=== PATIENT | female | born 1930 | race Caucasian/White ===

== ENCOUNTER 2016-11-02 20:06 | Inpatient (IN) | payer MEDICARE ==
[~2016-11-02] VITALS: Ht 160 cm; Wt 54.4 kg
[2016-11-02] MEDS ORDERED: Morphine Sulfate 2mg/ml Inj IVP ONE ×2 (20:30→22:15)
[2016-11-02 21:00] VITALS: BP 175/91
--- NOTE | 2016-11-02 21:12 | Emergency Room Report ---
History of Present Illness General Chief Complaint: Multiple Trauma/Fall Source: Patient (FNIA MARTINEZ) Present Illness HPI The patient is an 86-year-old female presenting with right hip pain after slipping and falling in the shower today. The patient states that she was shampooing her hair while standing, slipped, and fell onto the right hip. The patient was unable to get up at that point and states that she was sitting down for 12 hours before being found. The patient states that she has had multiple fractures of the pelvis in the past with the last one being 5 years prior. The patient states that she is experiencing a 1/10 sharp sensation to the right hip. The patient denies hitting her head and denies loss of consciousness. The patient denies numbness or tingling of the extremity and denies other symptoms including N, V, F, KEE, dizziness, blurred vision, CP, SOB (FINA MARTINEZ) Allergies: Coded Allergies: CELECOXIB (Verified Adverse Reaction, Intermediate, 11/02/16) PENICILLINS (Verified Adverse Reaction, Intermediate, 11/02/16) SULFA (SULFONAMIDE ANTIBIOTICS) (Verified Adverse Reaction, Intermediate, 11/02/16) AMOXICILLIN (Verified Adverse Reaction, Unknown, 11/02/16) PROPOXYPHENE (Verified Adverse Reaction, Unknown, 11/02/16) Uncoded Allergies: BIOXIN (Adverse Reaction, Mild, 11/02/16) Patient History Past Medical History: see triage record Past Surgical History: other Reviewed Nursing Documentation: PMH: Agreed, PSxH: Agreed (FINA MARTINEZ) Nursing Documentation-PMH Past Medical History: No History, Except For Hx Hypertension: Yes Hx Cancer: Yes - leg (FINA MARTINEZ P.ADanielle) Review of Systems All Other Systems: negative except mentioned in HPI (FINA MARTINEZ P.Cheng) Physical Exam Vital Signs Date Time Temp Pulse Resp B/P Pulse Ox O2 Delivery O2 Flow Rate FiO2 11/02/16 19:56 99.0 122 18 175/91 100 Room Air Sp02 EP Interpretation: reviewed, normal General Appearance: no apparent distress, alert, GCS 15, non-toxic Head: normocephalic, atraumatic Eyes: bilateral eye PERRL, bilateral eye normal inspection ENT: hearing grossly normal, normal pharynx, no angioedema, normal voice Respiratory: chest non-tender, lungs clear, normal breath sounds, speaking full sentences Cardiovascular #1: regular rate, rhythm, no edema Gastrointestinal: normal bowel sounds, non tender, soft, non-distended, no guarding, no rebound Genitourinary: normal inspection, no CVA tenderness Musculoskeletal: back normal, decreased range of motion - Of r hip, tender - TTP over anterior and Lateral R hip Neurologic: alert, oriented x3, responsive, motor strength/tone normal, sensory intact, speech normal Psychiatric: judgement/insight normal, memory normal, mood/affect normal, no suicidal/homicidal ideation Skin: normal color, no rash, warm/dry, well hydrated (FINA MARTINEZ) Medical Decision Making PA Attestation Dr. Gill is my supervising physician. Patient management was discussed with my supervising physician (FINA MARTINEZ) Diagnostic Impression: Primary Impression: Pelvic fracture Qualified Codes: S32.301A - Unspecified fracture of right ilium, initial encounter for closed fracture ER Course The patient is an 86-year-old female presenting with right hip pain after slipping and falling in the shower today. PE: No internal or external rotation of leg. No shortening or lengthening of leg. Decreased ROM at R hip. TTP over R lateral and anterior hip. No ecchymosis. (FINA MARTINEZ P.ADanielle) ER Course Patient signed out to me. She is awaiting a bed. She spiked a fever of 100.2. I reexamined her. I saw that there was order. She does have some rhonchus breath sound on exam. I ordered chest x-ray and urinalysis. Urinalysis is unremarkable. Chest x-ray showed older fractures. She probably had a viral illness causing her to be weak and fell in the bathroom. No evidence of pneumonia. No evidence of sepsis. (KUNAL LAWRENCE M.D.) Chest X-Ray Diagnostic Results EP Interpretation: Yes Findings: no consolidation, no effusion, no pneumothorax, no acute cardiopulmonary disease, other - Old rib fractures Number of Views: 1 (KUNAL LAWRENCE M.D.) Last Vital Signs Date Time Temp Pulse Resp B/P Pulse Ox O2 Delivery O2 Flow Rate FiO2 11/02/16 19:56 99.0 122 18 175/91 100 Room Air Status: improved (FINA MARTINEZ) Status: improved (KUNAL LAWRENCE M.D.) Disposition: ADMITTED INPATIENT Condition: Serious FINA MARTINEZ Nov 02, 2016 21:12 KUNAL LAWRENCE M.D. Nov 03, 2016 05:22
[2016-11-02 22:10] LABS: BASOPHILS % (AUTO) 0.4 % (0.0-2.0); EOSINOPHILS % (AUTO) 0.1 % (0.0-3.0); LYMPHOCYTES % (AUTO) 11.4 % (20.0-45.0); MEAN CORPUSCULAR HEMOGLOBIN 31.9 PG (27.0-31.0); MEAN CORPUSCULAR HGB CONC 33.1 G/DL (32.0-36.0); MEAN CORPUSCULAR VOLUME 96 FL (80-99); MEAN PLATELET VOLUME 9.2 FL (6.5-10.1); MONOCYTES % (AUTO) 10.2 % (1.0-10.0); PLATELET COUNT 195 K/UL (150-450); RED CELL DISTRIBUTION WIDTH 11.6 % (11.6-14.8); WHITE BLOOD COUNT 7.9 K/UL (4.8-10.8)
[2016-11-02 22:31] LABS: TROPONIN I < 0.30 ng/mL (<=0.30)
[2016-11-02 22:37] LABS: ALANINE AMINOTRANSFERASE 21 U/L (3-33); ALBUMIN/GLOBULIN RATIO 1.4 (1.0-2.7); ANION GAP 18 (5-15); ASPARTATE AMINO TRANSFERASE 39 U/L (5-40); CALCIUM 9.9 mg/dL (8.6-10.2); CARBON DIOXIDE 24 mEQ/L (20-30); CHLORIDE 93 mEQ/L (98-107); CREATININE 0.9 mg/dL (0.5-0.9); HEMOLYSIS 13; POTASSIUM 4.3 mEQ/L (3.4-4.9); SODIUM 135 mEQ/L (135-145); TOTAL PROTEIN 6.8 g/dL (6.6-8.7)
[2016-11-02 22:47] LABS: CKMB 8.2 ng/mL (< 3.8)
[2016-11-03] VITALS (8 sets, daily range): BP systolic 125–144; BP diastolic 50–83
[2016-11-03] MEDS ORDERED: NATURE-THROI16.25 MG PO (02:21)
[2016-11-03] MEDS ORDERED: ALLEGRA ALLERGY60 M1 PO (02:21)
[2016-11-03] MEDS ORDERED: AMLODIPINE BES2.5 MG ORAL (02:21)
[2016-11-03 05:18] LABS: APPEARANCE,URINE CLEAR; KETONES,URINE 3+ (NEGATIVE); LEUKOCYTE ESTERASE ,URINE NEGATIVE (NEGATIVE); NITRITE,URINE NEGATIVE (NEGATIVE); PH,URINE 5 (4.5-8.0); PROTEIN,URINE NEGATIVE (NEGATIVE); UROBILINOGEN,URINE NORMAL MG/DL (0.0-1.0)
[2016-11-03 05:41] LABS: AMORPHOUS SEDIMENT,UR OCCASIONAL /LPF; BACTERIA,URINE OCCASIONAL /HPF; SQUAMOUS EPITHELIAL CELL,UR OCCASIONAL /LPF (NONE/OCC); WBC,URINE 0-2 /HPF (0 - 2)
[2016-11-03] MEDS ORDERED: Ipratropium 0.02% Inh Soln 2.5ml UD HHN ONE (08:15)
[2016-11-03] MEDS ORDERED: Albuterol ud Inhalation HHN ONE (08:15)
--- NOTE | 2016-11-03 08:41 | Diagnostic Imaging Report ---
Indications: Shortness of breath Technique: Portable AP chest Findings: Comparison: None Cardiac silhouette upper limits of normal in size. Pulmonary vasculature within normal limits. Lungs and pleura clear. Mild elevation apparent right hemidiaphragm. Moderate dextroscoliosis of thoracolumbar spine. Disc space narrowing with marginal osteophyte formation lower thoracic, upper lumbar spine. Additional degenerative changes suggested in lower cervical spine. Multiple adjacent old, healed left rib fractures. IMPRESSION: Elevation apparent right hemidiaphragm, nonspecific, acuity indeterminate Otherwise no evidence of acute cardiopulmonary disease Portal and cardiomegaly Scoliosis Degenerative spondylosis Old left rib fractures
--- NOTE | 2016-11-03 09:14 | Diagnostic Imaging Report ---
Indications: Fall, low back trauma and pain Technique: Continuous helical CT imaging of the lumbar spine was performed with automatic exposure control on a Siemens sensation [address] scanner. Axial, coronal, and sagittal images were reconstructed at 3 mm slice thicknesses. CTDI volume(s): 13 mGy Total DLP: 317 mGy-cm Findings: Comparison: None 4 mm posterior subluxation of L1 on L2. 8 mm anterior subluxation of L4 on L5. 3 mm anterior subluxation of L5 on S1. Associated pars interarticularis defect on the right at L5. Mild S-shaped scoliosis. Each visualized disc space narrowing with marginal osteophyte formation, vacuum phenomenon, subchondral sclerosis and Schmorl's nodes. 9? of facet hypertrophy and widening at each level. No acute fracture, facet dislocation, paraspinous soft tissue swelling or other acute change identified. Scattered arterial mural calcifications. More subcentimeter circumscribed low attenuation foci in liver not further characterizable IMPRESSION: No evidence of acute lumbar injury Lower thoracic and lumbar degenerative spondylosis. Multilevel grade 1 spondylolisthesis. Unilateral spondylolysis at L5. Scoliosis Arteriosclerosis Nonspecific liver lesions. Ultrasound correlation suggested. This correlates with Dr. Rico's preliminary report.
[2016-11-03] MEDS ORDERED: Miralax 17gm pkt ORAL PRN (10:30)
[2016-11-03] MEDS ORDERED: Mylanta II UD 30ml ORAL PRN (10:30)
[2016-11-03] MEDS ORDERED: Morphine Sulfate 2mg/ml Inj IVP PRN (10:30)
[2016-11-03] MEDS ORDERED: LORazepam Inj 2mg/ml 1ml IV PRN (10:30)
--- NOTE | 2016-11-03 11:27 | Diagnostic Imaging Report ---
Indications: Fall, pelvic injury and pain Technique: Continuous helical CT imaging of the pelvis was performed with automatic exposure control on a Siemens sensation [address] scanner. Axial, coronal, sagittal images reconstructed at 3 mm slice thickness. CTDI volume(s): 14 mGy Total DLP: 388 mGy-cm Findings: Comparison: None There is a comminuted, displaced fracture through the right iliac wing. Surrounding musculature is swollen. Overlying subcutaneous soft tissue stranding. No associated gas or foreign body. No additional acute fracture demonstrated. Chronic appearing contour deformities bilateral superior and inferior ischiopubic rami. Bilateral sacroiliac and hip joints, pubic symphysis intact. Bilateral hip joints and pubic symphysis demonstrate marginal osteophyte formation. No additional surrounding soft tissue abnormalities are demonstrated. Scattered arterial mural calcifications. Vascular patency indeterminate. IMPRESSION: Comminuted fracture right iliac wing with surrounding swelling/hematoma, apparently closed No other evidence of acute injury Old, healed ischiopubic ramus fractures Pubic symphysis and bilateral hip degenerative arthropathy Arteriosclerosis This correlates with Dr. Rico's preliminary report.
--- NOTE | 2016-11-03 15:40 | Consultation ---
History of Present Illness General Date patient seen: Nov 03, 2016 Chief Complaint: Elevated right hemidiaphragm s/ps fall and Multiple Trauma/ Fall Referring physician: Dr Rodriguez Reason for Consultation: Dyspnea abnormal CXR Present Illness HPI Patient is a pleasant 86 yo female with pmhx of debility who presents to [facility] after a recent fall and apparent pelvic fracture status post. Also patient has complaints of difficulty breathing and pain on the right costophrenic areas. I was asked to consult on the case to evaluate the patients abnormal diagnostics and symptoms. CXR reveals elevated right sided charli-diaphragm. No obvious signs of pneumothorax or pneumotension, oxygenation and breath sounds are within acceptable range at this time. No signs of hemathorax or fluid collection in either lung at this time. Allergies: Coded Allergies: CELECOXIB (Verified Adverse Reaction, Intermediate, 11/02/16) PENICILLINS (Verified Adverse Reaction, Intermediate, 11/02/16) SULFA (SULFONAMIDE ANTIBIOTICS) (Verified Adverse Reaction, Intermediate, 11/02/16) AMOXICILLIN (Verified Adverse Reaction, Unknown, 11/02/16) PROPOXYPHENE (Verified Adverse Reaction, Unknown, 11/02/16) Uncoded Allergies: BIOXIN (Adverse Reaction, Mild, 11/02/16) Medication History Scheduled Amlodipine Besylate* (Amlodipine Besylate*), 2.5 MG ORAL DAILY, (Reported) Levofloxacin* (Levaquin*), 500 MG ORAL DAILY Scheduled PRN Acetaminophen* (Acetaminophen*), 650 MG ORAL Q4H PRN Albuterol Sulfate* (Albuterol Sulfate Mdi*), 2 PUFF INH Q4H PRN Hydrocodone Bit/Acetaminophen 5-325* (Alberta 5-325*), 1 TAB ORAL Q6H PRN Zolpidem Tartrate* (Ambien*), 5 MG ORAL HSPRN PRN Miscellaneous Medications Fexofenadine Hcl (Sandi Allergy), 60 MG PO, (Reported) Thyroid,Pork (Nature-Throid), 16.25 MG PO, (Reported) Patient History Healthcare decision maker Resuscitation status Full Code Advanced Directive on File Review of Systems Respiratory: Reports: WILL, shortness of breath Cardiovascular: Reports: chest pain Musculoskeletal: Reports: back pain, muscle pain, muscle stiffness, see HPI Physical Exam General Appearance: moderate distress Lines, tubes and drains: peripheral HEENT: normocephalic, atraumatic, PERRL Neck: non-tender, normal alignment, supple Respiratory/Chest: chest wall non-tender, lungs clear, normal breath sounds Breasts: no masses Cardiovascular/Chest: normal peripheral pulses, normal rate, regular rhythm, no JVD Abdomen: normal bowel sounds, non tender, soft, no organomegaly Genitourinary/Rectal: normal genital exam, normal rectal exam Extremities: other - severe pelvic and hip pain bilaterally Skin Exam: normal pigmentation, warm/dry Neurologic: hide tanner II-XII grossly normal, no motor/sensory deficits Last 24 Hour Vital Signs Date Time Temp Pulse Resp B/P Pulse Ox O2 Delivery O2 Flow Rate FiO2 11/03/16 14:58 77 136/92 11/03/16 12:00 98.8 105 18 137/68 98 Room Air 11/03/16 11:56 98.8 105 17 136/70 98 Room Air 11/03/16 10:55 102 13 136/82 97 Nasal Cannula 2.0 11/03/16 08:21 98 17 98 Nasal Cannula 2.0 28 11/03/16 08:21 98 19 Nasal Cannula 2.0 28 11/03/16 08:08 98.6 97 20 125/56 97 Nasal Cannula 2.0 11/03/16 07:05 98.8 98 18 127/50 94 Nasal Cannula 2.0 11/03/16 04:21 100.1 105 18 144/74 95 Nasal Cannula 2.0 11/03/16 02:21 100.2 110 18 133/83 94 Room Air 11/02/16 23:45 99.0 11/02/16 23:45 99.0 11/02/16 21:00 99.0 80 18 175/91 100 Room Air 11/02/16 19:56 99.0 122 18 175/91 100 Room Air Intake and Output 11/02/16 11/03/16 19:00 07:00 Intake Total 1000 ml Balance 1000 ml IV Total 1000 ml Laboratory Tests Test 11/02/16 21:40 11/03/16 04:39 White Blood Count 7.9 K/UL (4.8-10.8) Red Blood Count 4.60 M/UL (4.20-5.40) Hemoglobin 14.7 G/DL (12.0-16.0) Hematocrit 44.4 % (37.0-47.0) Mean Corpuscular Volume 96 FL (80-99) Mean Corpuscular Hemoglobin 31.9 PG (27.0-31.0) H Mean Corpuscular Hemoglobin Concent 33.1 G/DL (32.0-36.0) Red Cell Distribution Width 11.6 % (11.6-14.8) Platelet Count 195 K/UL (150-450) Mean Platelet Volume 9.2 FL (6.5-10.1) Neutrophils (%) (Auto) 78.0 % (45.0-75.0) H Lymphocytes (%) (Auto) 11.4 % (20.0-45.0) L Monocytes (%) (Auto) 10.2 % (1.0-10.0) H Eosinophils (%) (Auto) 0.1 % (0.0-3.0) Basophils (%) (Auto) 0.4 % (0.0-2.0) Sodium Level 135 mEQ/L (135-145) Potassium Level 4.3 mEQ/L (3.4-4.9) Chloride Level 93 mEQ/L (98-107) L Carbon Dioxide Level 24 mEQ/L (20-30) Anion Gap 18 (5-15) H Blood Urea Nitrogen 22 mg/dL (7-23) Creatinine 0.9 mg/dL (0.5-0.9) Estimat Glomerular Filtration Rate mL/min (>60) Glucose Level 128 mg/dL (74-106) H Calcium Level 9.9 mg/dL (8.6-10.2) Total Bilirubin 0.5 mg/dL (0.0-1.2) Aspartate Amino Transf (AST/SGOT) 39 U/L (5-40) Alanine Aminotransferase (ALT/SGPT) 21 U/L (3-33) Alkaline Phosphatase 83 U/L (35-104) Total Creatine Kinase 611 U/L (26-140) H Creatine Kinase MB 8.2 ng/mL (< 3.8) H Creatine Kinase MB Relative Index 1.3 Troponin I < 0.30 ng/mL (<=0.30) Total Protein 6.8 g/dL (6.6-8.7) Albumin 4.0 g/dL (3.5-5.2) Globulin 2.8 g/dL Albumin/Globulin Ratio 1.4 (1.0-2.7) Urine Color Pale yellow Urine Appearance Clear Urine pH 5 (4.5-8.0) Urine Specific [place] 1.010 (1.005-1.035) Urine Protein Negative (NEGATIVE) Urine Glucose (UA) Negative (NEGATIVE) Urine Ketones 3+ (NEGATIVE) H Urine Occult Blood 3+ (NEGATIVE) H Urine Nitrite Negative (NEGATIVE) Urine Bilirubin Negative (NEGATIVE) Urine Urobilinogen Normal MG/DL (0.0-1.0) Urine Leukocyte Esterase Negative (NEGATIVE) Urine RBC 2-4 /HPF (0 - 2) H Urine WBC 0-2 /HPF (0 - 2) Urine Squamous Epithelial Cells Occasional /LPF Urine Amorphous Sediment Occasional /LPF (NONE) Urine Bacteria Occasional /HPF (NONE) Lactic Acid Level 0.80 mmol/L (0.66-2.22) Height (Feet): 5 Height (Inches): 3.00 Weight (Pounds): 120 Medications Current Medications Medications (Trade) Dose Ordered Sig/Brenden Route PRN Reason Start Time Stop Time Status Last Admin Dose Admin Acetaminophen (Tylenol) 650 mg Q4H PRN ORAL fever 11/03/16 10:30 12/03/16 10:29 Al Hydroxide/Mg Hydroxide (Mylanta II) 30 ml Q6H PRN ORAL dyspepsia 11/03/16 10:30 12/03/16 10:29 Amlodipine Besylate (Norvasc) 2.5 mg DAILY ORAL 11/03/16 12:00 12/03/16 11:59 11/03/16 14:58 Dextrose (Dextrose 50%) STAT PRN IV Hypoglycemia 11/03/16 10:30 12/03/16 10:29 Heparin Sodium (Porcine) (Heparin 5000 units/ml) 5,000 units EVERY 12 HOURS SUBQ 11/03/16 21:00 12/03/16 20:59 Lorazepam (Ativan 2mg/ml 1ml) 0.5 mg Q4H PRN IV For Anxiety 11/03/16 10:30 11/10/16 10:29 Morphine Sulfate (Morphine Sulfate) 2 mg EVERY 4 HOURS PRN IVP For Pain 4-6 11/03/16 10:30 11/10/16 10:29 Ondansetron HCl (Zofran) 4 mg Q6H PRN IVP Nausea & Vomiting 11/03/16 10:30 12/03/16 10:29 Polyethylene Glycol (Miralax) 17 gm HSPRN PRN ORAL Constipation 11/03/16 10:30 12/03/16 10:29 Zolpidem Tartrate (Ambien) 5 mg HSPRN PRN ORAL Insomnia 11/03/16 10:30 12/03/16 10:29 Assessment/Plan Status: stable Assessment/Plan Assessment/Plan Problems: Elevated right hemidiaphram Hypothyroidism HTN (hypertension) Fall from slipping on slippery surface Closed fracture of iliac wing of pelvis Assessment/Plan Follow up radiograph needed in 3 months to re-evaluate the right hemidiaphram for evolution. no surgery needed at this time pain control dvt zarina reagan planning ALFREDA ETIENNE Nov 03, 2016 15:40
--- NOTE | 2016-11-03 16:44 | History & Physical ---
History and Physical History & Physicial Dictated for Int Med - Dr Chen no. [id number]. DENISSE HANNA Nov 03, 2016 16:43
[2016-11-03] MEDS ORDERED: Albuterol 90mcg Inhaler 8gm INH PRN (17:00)
[2016-11-03] MEDS: Heparin 5000 units/ml inj SUBQ SCH (20:48)
[2016-11-03] MEDS: Promethazine/Codeine 5ml UD ORAL PRN (20:50)
[2016-11-04] VITALS: BP 121/67
[2016-11-04] MEDS: Zolpidem 5mg tab ORAL PRN (00:02)
--- NOTE | 2016-11-04 01:57 | History and Physical Report ---
DATE OF ADMISSION: 11/03/2016 CHIEF COMPLAINT: The patient is an 86-year-old white female, who presents with a chief complaint of right hip pain. HISTORY OF PRESENT ILLNESS: The patient was taking a shower on 11/02/2016. The patient has suffered a slip and fall injury in the shower. The patient struck her right hip. The patient denies loss of consciousness. The patient presented to [facility]. The patient was found to have a right iliac wing fracture. The patient is admitted for right pelvic fracture for possible surgery. REVIEW OF SYSTEMS: Constitutional: The patient denies weight loss or weight gain. The patient denies fevers or chills. HEENT: The patient denies ear or throat pain. Cardiovascular: The patient denies palpitations or chest pain. Chest: The patient denies wheeze or shortness of breath. Abdomen: The patient denies nausea, vomiting, diarrhea, or constipation. Genitourinary: The patient denies frequency of urination. Musculoskeletal: The patient complains of right hip pain as above. Neurologic: The patient denies seizures or generalized weakness. PAST MEDICAL HISTORY: Significant for, 1. Hypertension. 2. Hypothyroidism. PAST SURGICAL HISTORY: Significant for bilateral knee replacement. CURRENT MEDICATIONS: 1. Amlodipine 2.5 mg one tablet p.o. daily. 2. Thyroid, pork 16.25 mg p.o. daily. 3. Sandi 60 mg one tablet p.o. daily. ALLERGIES: 1. Biaxin. 2. Penicillin. 3. Sulfa. 4. Darvocet. SOCIAL HISTORY: The patient is a . The patient denies tobacco or alcohol use. The patient lives alone. PHYSICAL EXAMINATION: VITAL SIGNS: Temperature 98.8 degrees, respirations 17, pulse 105, and blood pressure 136/73. GENERAL: The patient is a well-developed and well-nourished white female, in no apparent distress. The patient's daughter is present at the bedside. HEENT: Eyes, pupils are equal and responsive to light and accommodation. Extraocular movements are intact. NECK: Supple without lymphadenopathy. CHEST: Lungs are clear to auscultation bilaterally without wheezes or rales. CARDIOVASCULAR: Regular rhythm and rate. S1 and S2 normal without murmurs, rubs, or gallops. ABDOMEN: Soft, nontender, and nondistended. Positive bowel sounds. No hepatosplenomegaly. Currently, no rebound or guarding noted. EXTREMITIES: There is pain on palpation over the right hip. The right hip is immobilized at this point. NEUROLOGIC: Otherwise, cranial nerves II to XII are grossly intact without focal deficits. Motor strength is 5/5 bilaterally. Deep tendon reflexes are 2+ plantar. LABORATORY STUDIES: WBC 7.9, hemoglobin 14.7, hematocrit 44.4, and platelets 195,000. Sodium 135, potassium 4.3, chloride 93, CO2 24, BUN 22, creatinine 0.9, and glucose 128. Troponin level less than 0.3. Urinalysis showed 3+ ketones and 2+ occult blood. A CT scan of the pelvis showed comminuted fracture of the right iliac wing. ASSESSMENT: This is an 86-year-old white female. 1. Fracture of the right iliac wing. 2. Hypertension. 3. Hypothyroidism. 4. Slip and fall. TREATMENT: 1. Fracture of the right iliac wing. An orthopedic consultation was obtained with Dr. Gigi Hook. The patient's right hip is currently immobilized. We will follow recommendations of Orthopedic Surgery. The patient is requesting transfer to [facility]. The patient is followed by orthopedics, Dr. Jacek whyte. 2. Hypertension. Continue amlodipine as above. 3. Hypothyroidism. Pork thyroid is non-formulary at [facility]. The patient has been started empirically on Levoxyl. Meir Rodriguez M.D. DR: HARI JOB#: [id number] CC:
[2016-11-04 04:00] VITALS: BP 127/82
--- NOTE | 2016-11-04 05:27 | Consultation ---
DATE OF CONSULTATION: 11/03/2016 ORTHOPEDIC CONSULTATION CONSULTING PHYSICIAN: Gigi Hook M.D. REQUESTING PHYSICIAN: Meir Rodriguez M.D. CHIEF COMPLAINT: Right hip pain. HISTORY OF PRESENT ILLNESS: The patient is an 86-year-old female, who slipped in bathroom today. She had significant pain and difficulty ambulating on the right hip. She was brought to the emergency room where she was diagnosed with multiple pelvis fractures. She was then subsequently admitted for pain management and replacement. Orthopedic consultation was obtained for further care and recommendation. PAST MEDICAL HISTORY: Reviewed from the intake chart. PAST SURGICAL HISTORY: None. MEDICATIONS: Reviewed from the intake chart. PHYSICAL EXAMINATION: GENERAL: The patient is alert and oriented. She is resting comfortably on bed. EXTREMITIES: Right hip examination shows pain on the lateral aspect of the right hip along the iliac crest. Mild ecchymosis. Skin is intact. Mild swelling and mild discomfort with internal rotation of the right hip. Sensation of right toes is intact. Sensation intact to light touch. Reflexes +2. Posterior calf is soft. DIAGNOSTIC DATA: CT scan of the right hip is reviewed and showed what appears to be old pubic rami fracture, which is healed. Joint space is well maintained. There is a comminuted iliac crest fracture. ASSESSMENT: Right common iliac crest fracture. DISCUSSION: At this point what I recommend is conservative treatment. The adductor muscles overlying this fracture should heal without any clinical consequences. It will take 6 to 12 weeks for this to heal. She began physical therapy. We can now see how she does with physical therapy. Determine discharge planning. I will see her as outpatient in about 4 to 6 weeks. Gigi Hook M.D. DR: JENNIFER JOB#: [id number] CC: Meir Rodriguez M.D.; Fax#: [phone] [facility]
[2016-11-04] MEDS: THYROID ORAL SCH (06:15)
[2016-11-04 08:05] LABS: ALANINE AMINOTRANSFERASE 16 U/L (3-33); ALBUMIN/GLOBULIN RATIO 1.2 (1.0-2.7); ANION GAP 13 (5-15); ASPARTATE AMINO TRANSFERASE 37 U/L (5-40); CALCIUM 8.4 mg/dL (8.6-10.2); CARBON DIOXIDE 25 mEQ/L (20-30); CHLORIDE 97 mEQ/L (98-107); CREATININE 0.7 mg/dL (0.5-0.9); HEMOLYSIS 6; POTASSIUM 3.9 mEQ/L (3.4-4.9); SODIUM 135 mEQ/L (135-145); TOTAL PROTEIN 5.4 g/dL (6.6-8.7)
[2016-11-04 08:12] VITALS: BP 117/78
[2016-11-04 08:42] LABS: BASOPHILS % (AUTO) 0.7 % (0.0-2.0); EOSINOPHILS % (AUTO) 0.7 % (0.0-3.0); LYMPHOCYTES % (AUTO) 24.3 % (20.0-45.0); MEAN CORPUSCULAR HEMOGLOBIN 31.8 PG (27.0-31.0); MEAN CORPUSCULAR VOLUME 99 FL (80-99); MEAN PLATELET VOLUME 8.6 FL (6.5-10.1); MONOCYTES % (AUTO) 13.1 % (1.0-10.0); NEUTROPHILS % (AUTO) 61.1 % (45.0-75.0); PLATELET COUNT 173 K/UL (150-450); RED BLOOD COUNT 3.77 M/UL (4.20-5.40); RED CELL DISTRIBUTION WIDTH 11.7 % (11.6-14.8)
[2016-11-04] MEDS ORDERED: Norco 5mg/325mg tab ORAL PRN (09:30)
[2016-11-04] MEDS ORDERED: Morphine Sulfate 2mg/ml Inj IVP PRN (09:45)
[2016-11-04] MEDS: Norco 5mg/325mg tab ORAL PRN (10:06)
[2016-11-04] MEDS: Heparin 5000 units/ml inj SUBQ SCH ×2 (10:10→20:10)
[2016-11-04] MEDS: Promethazine/Codeine 5ml UD ORAL PRN ×2 (11:33→20:09)
[2016-11-04 11:59] VITALS: BP 120/70
--- NOTE | 2016-11-04 14:28 | Internal Med Progress Note ---
Subjective Date of Service: Nov 04, 2016 Physician Name Meir Hanna Attending Physician Fidel Márquez MD Current Medications Medications (Trade) Dose Ordered Sig/Brenden Route PRN Reason Start Time Stop Time Status Last Admin Dose Admin Acetaminophen (Tylenol) 650 mg Q4H PRN ORAL fever 11/03/16 10:30 12/03/16 10:29 Acetaminophen/ Hydrocodone Bitart ([place] 5/325) 1 tab Q6H PRN ORAL Moderate Pain (Pain Scale 4-6) 11/04/16 10:00 11/11/16 09:59 11/04/16 10:06 Al Hydroxide/Mg Hydroxide (Mylanta II) 30 ml Q6H PRN ORAL dyspepsia 11/03/16 10:30 12/03/16 10:29 Albuterol Sulfate (Proventil MDI) 2 puff Q4H PRN INH Shortness of Breath 11/03/16 17:00 12/03/16 16:59 11/03/16 19:35 Amlodipine Besylate (Norvasc) 2.5 mg DAILY ORAL 11/03/16 12:00 12/03/16 11:59 11/03/16 14:58 Dextrose (Dextrose 50%) STAT PRN IV Hypoglycemia 11/03/16 10:30 12/03/16 10:29 Heparin Sodium (Porcine) (Heparin 5000 units/ml) 5,000 units EVERY 12 HOURS SUBQ 11/03/16 21:00 12/03/16 20:59 11/04/16 10:10 Lorazepam (Ativan 2mg/ml 1ml) 0.5 mg Q4H PRN IV For Anxiety 11/03/16 10:30 11/10/16 10:29 Morphine Sulfate (Morphine Sulfate) 2 mg Q4H PRN IVP Severe Pain (Pain Scale 7-10) 11/04/16 09:45 11/11/16 09:44 Ondansetron HCl (Zofran) 4 mg Q6H PRN IVP Nausea & Vomiting 11/03/16 10:30 12/03/16 10:29 Patient Own Medication (Patient's Own Med) 1.5 ea ACBREAKFAST ORAL 11/04/16 06:30 12/04/16 06:29 11/04/16 06:15 Polyethylene Glycol (Miralax) 17 gm HSPRN PRN ORAL Constipation 11/03/16 10:30 12/03/16 10:29 Promethazine HCl/ Codeine (Phenergan with Codeine) 5 ml Q4H PRN ORAL For Cough 11/03/16 20:00 12/03/16 19:59 11/04/16 11:33 Zolpidem Tartrate (Ambien) 5 mg HSPRN PRN ORAL Insomnia 11/03/16 10:30 12/03/16 10:29 11/04/16 00:02 Allergies: Coded Allergies: CELECOXIB (Verified Adverse Reaction, Intermediate, 11/02/16) PENICILLINS (Verified Adverse Reaction, Intermediate, 11/02/16) SULFA (SULFONAMIDE ANTIBIOTICS) (Verified Adverse Reaction, Intermediate, 11/02/16) AMOXICILLIN (Verified Adverse Reaction, Unknown, 11/02/16) PROPOXYPHENE (Verified Adverse Reaction, Unknown, 11/02/16) Uncoded Allergies: BIOXIN (Adverse Reaction, Mild, 11/02/16) ROS Limited/Unobtainable: No Constitutional: Reports: no symptoms HEENT: Reports: no symptoms Cardiovascular: Reports: no symptoms Respiratory: Reports: no symptoms Gastrointestinal/Abdominal: Reports: no symptoms Genitourinary: Reports: no symptoms Neurologic/Psychiatric: Reports: other - Right hip pain Subjective 86 YO F adm with right hip pain; now right iliac wing fracture. Objective Last Vital Signs Date Time Temp Pulse Resp B/P Pulse Ox O2 Delivery O2 Flow Rate FiO2 11/04/16 11:59 98.1 95 21 120/70 97 Nasal Cannula 2.0 11/03/16 19:38 28 General Appearance: WD/WN, no apparent distress, alert EENT: PERRL/EOMI, normal ENT inspection, TMs normal Neck: non-tender, normal alignment, supple Cardiovascular: normal peripheral pulses, normal rate, regular rhythm, no gallop/murmur, no JVD Respiratory/Chest: chest wall non-tender, lungs clear, normal breath sounds, no respiratory distress, no accessory muscle use Abdomen: normal bowel sounds, non tender, soft, no organomegaly, no mass Extremities: normal range of motion, non-tender, other - right hip pain 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: 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 II-XII grossly normal, no motor/sensory deficits Skin: normal pigmentation, warm/dry Laboratory Tests Test 11/04/16 05:00 White Blood Count 6.0 K/UL (4.8-10.8) Red Blood Count 3.77 M/UL (4.20-5.40) L Hemoglobin 12.0 G/DL (12.0-16.0) Hematocrit 37.5 % (37.0-47.0) Mean Corpuscular Volume 99 FL (80-99) Mean Corpuscular Hemoglobin 31.8 PG (27.0-31.0) H Mean Corpuscular Hemoglobin Concent 32.0 G/DL (32.0-36.0) Red Cell Distribution Width 11.7 % (11.6-14.8) Platelet Count 173 K/UL (150-450) Mean Platelet Volume 8.6 FL (6.5-10.1) Neutrophils (%) (Auto) 61.1 % (45.0-75.0) Lymphocytes (%) (Auto) 24.3 % (20.0-45.0) Monocytes (%) (Auto) 13.1 % (1.0-10.0) H Eosinophils (%) (Auto) 0.7 % (0.0-3.0) Basophils (%) (Auto) 0.7 % (0.0-2.0) Sodium Level 135 mEQ/L (135-145) Potassium Level 3.9 mEQ/L (3.4-4.9) Chloride Level 97 mEQ/L (98-107) L Carbon Dioxide Level 25 mEQ/L (20-30) Anion Gap 13 (5-15) Blood Urea Nitrogen 18 mg/dL (7-23) Creatinine 0.7 mg/dL (0.5-0.9) Estimat Glomerular Filtration Rate mL/min (>60) Glucose Level 97 mg/dL (74-106) Calcium Level 8.4 mg/dL (8.6-10.2) L Total Bilirubin 0.5 mg/dL (0.0-1.2) Aspartate Amino Transf (AST/SGOT) 37 U/L (5-40) Alanine Aminotransferase (ALT/SGPT) 16 U/L (3-33) Alkaline Phosphatase 58 U/L (35-104) Total Protein 5.4 g/dL (6.6-8.7) L Albumin 3.0 g/dL (3.5-5.2) L Globulin 2.4 g/dL Albumin/Globulin Ratio 1.2 (1.0-2.7) Microbiology Date/Time Source Procedure Growth Status 11/03/16 04:39 Blood Blood Culture - Preliminary NO GROWTH AFTER 24 HOURS Resulted 11/03/16 04:39 Blood Blood Culture - Preliminary NO GROWTH AFTER 24 HOURS Resulted Intake and Output 11/03/16 11/04/16 19:00 07:00 Intake Total 260 ml 360 ml Output Total 250 ml 550 ml Balance 10 ml -190 ml Intake Oral 260 ml 360 ml Output Urine Total 250 ml 550 ml Assessment/Plan Problem List: (1) Closed fracture of iliac wing of pelvis Assessment & Plan: Non surgical. See orthopedic note. (2) HTN (hypertension) Assessment & Plan: Cont norvasc. (3) Hypothyroidism Assessment & Plan: cont levoxyl (4) Fall from slipping on slippery surface Status: not improved MEIR HANNA Nov 04, 2016 14:28
[2016-11-04 15:46] LABS: BASOPHILS % (AUTO) 1.4 % (0.0-2.0); EOSINOPHILS % (AUTO) 0.6 % (0.0-3.0); LYMPHOCYTES % (AUTO) 21.8 % (20.0-45.0); MEAN CORPUSCULAR HEMOGLOBIN 31.8 PG (27.0-31.0); MEAN CORPUSCULAR HGB CONC 32.7 G/DL (32.0-36.0); MEAN CORPUSCULAR VOLUME 97 FL (80-99); MEAN PLATELET VOLUME 8.4 FL (6.5-10.1); MONOCYTES % (AUTO) 13.3 % (1.0-10.0); NEUTROPHILS % (AUTO) 62.9 % (45.0-75.0); PLATELET COUNT 164 K/UL (150-450); RED BLOOD COUNT 3.97 M/UL (4.20-5.40); RED CELL DISTRIBUTION WIDTH 11.9 % (11.6-14.8); WHITE BLOOD COUNT 7.4 K/UL (4.8-10.8)
[2016-11-04 15:59] VITALS: BP 133/68
[2016-11-04 20:15] VITALS: BP 143/72
[2016-11-05] VITALS: BP 117/77
[2016-11-05 04:00] VITALS: BP 140/85
[2016-11-05] MEDS: THYROID ORAL SCH (06:10)
[2016-11-05 08:15] VITALS: BP 136/71
[2016-11-05] MEDS: Promethazine/Codeine 5ml UD ORAL PRN ×2 (08:24→20:22)
[2016-11-05] MEDS: Norco 5mg/325mg tab ORAL PRN (08:31)
[2016-11-05] MEDS: Heparin 5000 units/ml inj SUBQ SCH ×2 (08:32→20:23)
[2016-11-05 08:42] LABS: ANION GAP 11 (5-15); CALCIUM 8.3 mg/dL (8.6-10.2); CARBON DIOXIDE 26 mEQ/L (20-30); CHLORIDE 98 mEQ/L (98-107); CREATININE 0.5 mg/dL (0.5-0.9); HEMOLYSIS 2; POTASSIUM 4.1 mEQ/L (3.4-4.9); SODIUM 135 mEQ/L (135-145)
[2016-11-05 12:08] VITALS: BP 120/70
[2016-11-05 15:54] VITALS: BP 137/73
--- NOTE | 2016-11-05 17:59 | Internal Med Progress Note ---
Subjective Date of Service: Nov 05, 2016 Physician Name Denisse Rodriguez Attending Physician Fidel Márquez MD Current Medications Medications (Trade) Dose Ordered Sig/Brenden Route PRN Reason Start Time Stop Time Status Last Admin Dose Admin Acetaminophen (Tylenol) 650 mg Q4H PRN ORAL fever 11/03/16 10:30 12/03/16 10:29 Acetaminophen/ Hydrocodone Bitart ([place] 5/325) 1 tab Q6H PRN ORAL Moderate Pain (Pain Scale 4-6) 11/04/16 10:00 11/11/16 09:59 11/05/16 08:31 Al Hydroxide/Mg Hydroxide (Mylanta II) 30 ml Q6H PRN ORAL dyspepsia 11/03/16 10:30 12/03/16 10:29 Albuterol Sulfate (Proventil MDI) 2 puff Q4H PRN INH Shortness of Breath 11/03/16 17:00 12/03/16 16:59 11/03/16 19:35 Amlodipine Besylate (Norvasc) 2.5 mg DAILY ORAL 11/03/16 12:00 12/03/16 11:59 11/05/16 08:24 Dextrose (Dextrose 50%) STAT PRN IV Hypoglycemia 11/03/16 10:30 12/03/16 10:29 Heparin Sodium (Porcine) (Heparin 5000 units/ml) 5,000 units EVERY 12 HOURS SUBQ 11/03/16 21:00 12/03/16 20:59 11/05/16 08:32 Lorazepam (Ativan 2mg/ml 1ml) 0.5 mg Q4H PRN IV For Anxiety 11/03/16 10:30 11/10/16 10:29 Morphine Sulfate (Morphine Sulfate) 2 mg Q4H PRN IVP Severe Pain (Pain Scale 7-10) 11/04/16 09:45 11/11/16 09:44 Ondansetron HCl (Zofran) 4 mg Q6H PRN IVP Nausea & Vomiting 11/03/16 10:30 12/03/16 10:29 Patient Own Medication (Patient's Own Med) 1.5 ea ACBREAKFAST ORAL 11/04/16 06:30 12/04/16 06:29 11/05/16 06:10 Polyethylene Glycol (Miralax) 17 gm HSPRN PRN ORAL Constipation 11/03/16 10:30 12/03/16 10:29 11/05/16 08:31 Promethazine HCl/ Codeine (Phenergan with Codeine) 5 ml Q4H PRN ORAL For Cough 11/03/16 20:00 12/03/16 19:59 11/05/16 08:24 Zolpidem Tartrate (Ambien) 5 mg HSPRN PRN ORAL Insomnia 11/03/16 10:30 12/03/16 10:29 11/04/16 00:02 Allergies: Coded Allergies: CELECOXIB (Verified Adverse Reaction, Intermediate, 11/02/16) PENICILLINS (Verified Adverse Reaction, Intermediate, 11/02/16) SULFA (SULFONAMIDE ANTIBIOTICS) (Verified Adverse Reaction, Intermediate, 11/02/16) AMOXICILLIN (Verified Adverse Reaction, Unknown, 11/02/16) PROPOXYPHENE (Verified Adverse Reaction, Unknown, 11/02/16) Uncoded Allergies: BIOXIN (Adverse Reaction, Mild, 11/02/16) ROS Limited/Unobtainable: No Constitutional: Reports: no symptoms HEENT: Reports: no symptoms Cardiovascular: Reports: no symptoms Respiratory: Reports: no symptoms Gastrointestinal/Abdominal: Reports: no symptoms Genitourinary: Reports: no symptoms Neurologic/Psychiatric: Reports: no symptoms Subjective 86 YO F adm with right hip pain; now right iliac wing fracture. Cover for Int Med-Dr Márquez. C/O right hip pain Objective Last Vital Signs Date Time Temp Pulse Resp B/P Pulse Ox O2 Delivery O2 Flow Rate FiO2 11/05/16 15:54 97.5 89 18 137/73 99 Nasal Cannula 2.0 11/05/16 06:50 28 Laboratory Tests Test 11/05/16 05:25 Sodium Level 135 mEQ/L (135-145) Potassium Level 4.1 mEQ/L (3.4-4.9) Chloride Level 98 mEQ/L (98-107) Carbon Dioxide Level 26 mEQ/L (20-30) Anion Gap 11 (5-15) Blood Urea Nitrogen 14 mg/dL (7-23) Creatinine 0.5 mg/dL (0.5-0.9) Estimat Glomerular Filtration Rate mL/min (>60) Glucose Level 90 mg/dL (74-106) Calcium Level 8.3 mg/dL (8.6-10.2) L Microbiology Date/Time Source Procedure Growth Status 11/03/16 04:39 Blood Blood Culture - Preliminary NO GROWTH AFTER 48 HOURS Resulted 11/03/16 04:39 Blood Blood Culture - Preliminary NO GROWTH AFTER 48 HOURS Resulted Intake and Output 11/04/16 11/05/16 19:00 07:00 Intake Total 720 ml 240 ml Output Total 250 ml Balance 470 ml 240 ml Intake Oral 720 ml 240 ml Output Urine Total 250 ml # Voids 2 1 Objective General Appearance: WD/WN, no apparent distress, alert EENT: PERRL/EOMI, normal ENT inspection, TMs normal Neck: non-tender, normal alignment, supple Cardiovascular: normal peripheral pulses, normal rate, regular rhythm, no gallop/murmur, no JVD Respiratory/Chest: chest wall non-tender, lungs clear, normal breath sounds, no respiratory distress, no accessory muscle use Abdomen: normal bowel sounds, non tender, soft, no organomegaly, no mass Extremities: normal range of motion, non-tender, other - right hip pain 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 See orthopedic note. (2) HTN (hypertension) Assessment & Plan: Cont norvasc. (3) Hypothyroidism Assessment & Plan: cont levoxyl (4) Fall from slipping on slippery surface Assessment/Plan [facility] [place] CYNDIDENISSE Nov 05, 2016 17:59
[2016-11-05 19:51] VITALS: BP 119/66
[2016-11-05] MEDS: Zolpidem 5mg tab ORAL PRN (20:22)
[2016-11-06] VITALS: BP 135/67
[2016-11-06 04:00] VITALS: BP 136/65
[2016-11-06] MEDS: THYROID ORAL SCH (06:39)
[2016-11-06 07:36] LABS: BASOPHILS % (AUTO) 0.7 % (0.0-2.0); EOSINOPHILS % (AUTO) 2.6 % (0.0-3.0); LYMPHOCYTES % (AUTO) 26.6 % (20.0-45.0); MEAN CORPUSCULAR HEMOGLOBIN 32.2 PG (27.0-31.0); MEAN CORPUSCULAR HGB CONC 32.3 G/DL (32.0-36.0); MEAN CORPUSCULAR VOLUME 100 FL (80-99); MEAN PLATELET VOLUME 9.1 FL (6.5-10.1); MONOCYTES % (AUTO) 9.3 % (1.0-10.0); NEUTROPHILS % (AUTO) 60.8 % (45.0-75.0); PLATELET COUNT 172 K/UL (150-450); RED CELL DISTRIBUTION WIDTH 10.9 % (11.6-14.8); WHITE BLOOD COUNT 6.7 K/UL (4.8-10.8)
[2016-11-06 08:00] VITALS: BP 116/54
[2016-11-06 08:01] LABS: ANION GAP 11 (5-15); CALCIUM 9.3 mg/dL (8.6-10.2); CARBON DIOXIDE 30 mEQ/L (20-30); CHLORIDE 94 mEQ/L (98-107); CREATININE 0.6 mg/dL (0.5-0.9); HEMOLYSIS 14; POTASSIUM 4.4 mEQ/L (3.4-4.9); SODIUM 135 mEQ/L (135-145)
[2016-11-06] MEDS: Heparin 5000 units/ml inj SUBQ SCH ×2 (08:52→20:46)
--- NOTE | 2016-11-06 10:04 | Internal Med Progress Note ---
Subjective Date of Service: Nov 06, 2016 Physician Name Meir Hanna Attending Physician Fidel Márquez MD Current Medications Medications (Trade) Dose Ordered Sig/Brenden Route PRN Reason Start Time Stop Time Status Last Admin Dose Admin Acetaminophen (Tylenol) 650 mg Q4H PRN ORAL fever 11/03/16 10:30 12/03/16 10:29 Acetaminophen/ Hydrocodone Bitart ([place] 5/325) 1 tab Q6H PRN ORAL Moderate Pain (Pain Scale 4-6) 11/04/16 10:00 11/11/16 09:59 11/05/16 08:31 Al Hydroxide/Mg Hydroxide (Mylanta II) 30 ml Q6H PRN ORAL dyspepsia 11/03/16 10:30 12/03/16 10:29 Albuterol Sulfate (Proventil MDI) 2 puff Q4H PRN INH Shortness of Breath 11/03/16 17:00 12/03/16 16:59 11/03/16 19:35 Amlodipine Besylate (Norvasc) 2.5 mg DAILY ORAL 11/03/16 12:00 12/03/16 11:59 11/05/16 08:24 Dextrose (Dextrose 50%) STAT PRN IV Hypoglycemia 11/03/16 10:30 12/03/16 10:29 Heparin Sodium (Porcine) (Heparin 5000 units/ml) 5,000 units EVERY 12 HOURS SUBQ 11/03/16 21:00 12/03/16 20:59 11/06/16 08:52 Lorazepam (Ativan 2mg/ml 1ml) 0.5 mg Q4H PRN IV For Anxiety 11/03/16 10:30 11/10/16 10:29 Morphine Sulfate (Morphine Sulfate) 2 mg Q4H PRN IVP Severe Pain (Pain Scale 7-10) 11/04/16 09:45 11/11/16 09:44 Ondansetron HCl (Zofran) 4 mg Q6H PRN IVP Nausea & Vomiting 11/03/16 10:30 12/03/16 10:29 Patient Own Medication (Patient's Own Med) 1.5 ea ACBREAKFAST ORAL 11/04/16 06:30 12/04/16 06:29 11/06/16 06:39 Polyethylene Glycol (Miralax) 17 gm HSPRN PRN ORAL Constipation 11/03/16 10:30 12/03/16 10:29 11/05/16 08:31 Promethazine HCl/ Codeine (Phenergan with Codeine) 5 ml Q4H PRN ORAL For Cough 11/03/16 20:00 12/03/16 19:59 11/05/16 20:22 Zolpidem Tartrate (Ambien) 5 mg HSPRN PRN ORAL Insomnia 11/03/16 10:30 12/03/16 10:29 11/05/16 20:22 Allergies: Coded Allergies: CELECOXIB (Verified Adverse Reaction, Intermediate, 11/02/16) PENICILLINS (Verified Adverse Reaction, Intermediate, 11/02/16) SULFA (SULFONAMIDE ANTIBIOTICS) (Verified Adverse Reaction, Intermediate, 11/02/16) AMOXICILLIN (Verified Adverse Reaction, Unknown, 11/02/16) PROPOXYPHENE (Verified Adverse Reaction, Unknown, 11/02/16) Uncoded Allergies: BIOXIN (Adverse Reaction, Mild, 11/02/16) ROS Limited/Unobtainable: No Constitutional: Reports: no symptoms HEENT: Reports: no symptoms Cardiovascular: Reports: no symptoms Respiratory: Reports: no symptoms Gastrointestinal/Abdominal: Reports: no symptoms Genitourinary: Reports: no symptoms Neurologic/Psychiatric: Reports: other - right hip pain Subjective 86 YO F adm with right hip pain; now right iliac wing fracture. Cover for Int Med-Dr Márquez. C/O right hip pain Objective Last Vital Signs Date Time Temp Pulse Resp B/P Pulse Ox O2 Delivery O2 Flow Rate FiO2 11/06/16 08:50 89 116/54 11/06/16 08:00 97.8 20 95 Nasal Cannula 2.0 11/05/16 21:30 28 Laboratory Tests Test 11/06/16 07:00 White Blood Count 6.7 K/UL (4.8-10.8) Red Blood Count 3.80 M/UL (4.20-5.40) L Hemoglobin 12.2 G/DL (12.0-16.0) Hematocrit 37.9 % (37.0-47.0) Mean Corpuscular Volume 100 FL (80-99) H Mean Corpuscular Hemoglobin 32.2 PG (27.0-31.0) H Mean Corpuscular Hemoglobin Concent 32.3 G/DL (32.0-36.0) Red Cell Distribution Width 10.9 % (11.6-14.8) L Platelet Count 172 K/UL (150-450) Mean Platelet Volume 9.1 FL (6.5-10.1) Neutrophils (%) (Auto) 60.8 % (45.0-75.0) Lymphocytes (%) (Auto) 26.6 % (20.0-45.0) Monocytes (%) (Auto) 9.3 % (1.0-10.0) Eosinophils (%) (Auto) 2.6 % (0.0-3.0) Basophils (%) (Auto) 0.7 % (0.0-2.0) Sodium Level 135 mEQ/L (135-145) Potassium Level 4.4 mEQ/L (3.4-4.9) Chloride Level 94 mEQ/L (98-107) L Carbon Dioxide Level 30 mEQ/L (20-30) Anion Gap 11 (5-15) Blood Urea Nitrogen 18 mg/dL (7-23) Creatinine 0.6 mg/dL (0.5-0.9) Estimat Glomerular Filtration Rate mL/min (>60) Glucose Level 95 mg/dL (74-106) Calcium Level 9.3 mg/dL (8.6-10.2) Intake and Output 11/05/16 11/06/16 19:00 07:00 Intake Total 720 ml 250 ml Balance 720 ml 250 ml Intake Oral 720 ml 250 ml # Voids 1 5 Objective General Appearance: WD/WN, no apparent distress, alert EENT: PERRL/EOMI, normal ENT inspection, TMs normal Neck: non-tender, normal alignment, supple Cardiovascular: normal peripheral pulses, normal rate, regular rhythm, no gallop/murmur, no JVD Respiratory/Chest: chest wall non-tender, lungs clear, normal breath sounds, no respiratory distress, no accessory muscle use Abdomen: normal bowel sounds, non tender, soft, no organomegaly, no mass Extremities: normal range of motion, non-tender, other - right hip pain 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 See orthopedic note. (2) HTN (hypertension) Assessment & Plan: Cont norvasc. (3) Hypothyroidism Assessment & Plan: cont levoxyl (4) Fall from slipping on slippery surface Status: progressing Assessment/Plan Discharge planning: [facility] in [place] when bed available. MEIR HANNA Nov 06, 2016 10:03
[2016-11-06 12:00] VITALS: BP 108/58
[2016-11-06 16:00] VITALS: BP 101/64
--- NOTE | 2016-11-06 18:15 | Pulmonology Progress Note ---
Assessment/Plan Problems: (1) Hypothyroidism (2) HTN (hypertension) (3) Fall from slipping on slippery surface (4) Closed fracture of iliac wing of pelvis Assessment/Plan no surgery needed pain cotroll dvt porphylais dc planning Subjective ROS Limited/Unobtainable: No Constitutional: Reports: no symptoms HEENT: Repors: no symptoms Allergies: Coded Allergies: CELECOXIB (Verified Adverse Reaction, Intermediate, 11/02/16) PENICILLINS (Verified Adverse Reaction, Intermediate, 11/02/16) SULFA (SULFONAMIDE ANTIBIOTICS) (Verified Adverse Reaction, Intermediate, 11/02/16) AMOXICILLIN (Verified Adverse Reaction, Unknown, 11/02/16) PROPOXYPHENE (Verified Adverse Reaction, Unknown, 11/02/16) Uncoded Allergies: BIOXIN (Adverse Reaction, Mild, 11/02/16) Objective Last 24 Hour Vital Signs Date Time Temp Pulse Resp B/P Pulse Ox O2 Delivery O2 Flow Rate FiO2 11/06/16 16:00 97.4 88 18 101/64 97 Room Air 11/06/16 12:00 97.1 86 18 108/58 96 Nasal Cannula 2.0 11/06/16 08:50 89 116/54 11/06/16 08:00 97.8 89 20 116/54 95 Nasal Cannula 2.0 11/06/16 08:00 97.8 89 18 116/54 95 Nasal Cannula 2.0 11/06/16 04:00 97.0 79 20 136/65 97 Nasal Cannula 2.0 11/06/16 00:00 97.7 83 20 135/67 96 Room Air 11/05/16 21:30 83 16 Nasal Cannula 2.0 28 11/05/16 19:51 98.4 87 20 119/66 96 Nasal Cannula 2.0 Intake and Output 11/05/16 11/06/16 19:00 07:00 Intake Total 720 ml 250 ml Balance 720 ml 250 ml Intake Oral 720 ml 250 ml # Voids 1 5 General Appearance: WD/WN HEENT: normocephalic, atraumatic Respiratory/Chest: chest wall non-tender, lungs clear Breasts: no masses Cardiovascular: normal peripheral pulses, normal rate Abdomen: normal bowel sounds, soft, non tender Genitourinary: normal external genitalia Extremities: no cyanosis Skin: no ulcers 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 Laboratory Tests 11/06/16 07:00: White Blood Count 6.7, Red Blood Count 3.80L, Hemoglobin 12.2, Hematocrit 37.9, Mean Corpuscular Volume 100H, Mean Corpuscular Hemoglobin 32.2H, Mean Corpuscular Hemoglobin Concent 32.3, Red Cell Distribution Width 10.9L, Platelet Count 172, Mean Platelet Volume 9.1, Neutrophils (%) (Auto) 60.8, Lymphocytes (%) (Auto) 26.6, Monocytes (%) (Auto) 9.3, Eosinophils (%) (Auto) 2.6, Basophils (%) (Auto) 0.7, Sodium Level 135, Potassium Level 4.4, Chloride Level 94L, Carbon Dioxide Level 30, Anion Gap 11, Blood Urea Nitrogen 18, Creatinine 0.6, Estimat Glomerular Filtration Rate , Glucose Level 95, Calcium Level 9.3 Current Medications Medications (Trade) Dose Ordered Sig/Brenden Route PRN Reason Start Time Stop Time Status Last Admin Dose Admin Acetaminophen (Tylenol) 650 mg Q4H PRN ORAL fever 11/03/16 10:30 12/03/16 10:29 Acetaminophen/ Hydrocodone Bitart ([place] 5/325) 1 tab Q6H PRN ORAL Moderate Pain (Pain Scale 4-6) 11/04/16 10:00 11/11/16 09:59 11/05/16 08:31 Al Hydroxide/Mg Hydroxide (Mylanta II) 30 ml Q6H PRN ORAL dyspepsia 11/03/16 10:30 12/03/16 10:29 Albuterol Sulfate (Proventil MDI) 2 puff Q4H PRN INH Shortness of Breath 11/03/16 17:00 12/03/16 16:59 11/03/16 19:35 Amlodipine Besylate (Norvasc) 2.5 mg DAILY ORAL 11/03/16 12:00 12/03/16 11:59 11/05/16 08:24 Dextrose (Dextrose 50%) STAT PRN IV Hypoglycemia 11/03/16 10:30 12/03/16 10:29 Heparin Sodium (Porcine) (Heparin 5000 units/ml) 5,000 units EVERY 12 HOURS SUBQ 11/03/16 21:00 12/03/16 20:59 11/06/16 08:52 Lorazepam (Ativan 2mg/ml 1ml) 0.5 mg Q4H PRN IV For Anxiety 11/03/16 10:30 11/10/16 10:29 Morphine Sulfate (Morphine Sulfate) 2 mg Q4H PRN IVP Severe Pain (Pain Scale 7-10) 11/04/16 09:45 11/11/16 09:44 Ondansetron HCl (Zofran) 4 mg Q6H PRN IVP Nausea & Vomiting 11/03/16 10:30 12/03/16 10:29 Patient Own Medication (Patient's Own Med) 1.5 ea ACBREAKFAST ORAL 11/04/16 06:30 12/04/16 06:29 11/06/16 06:39 Polyethylene Glycol (Miralax) 17 gm HSPRN PRN ORAL Constipation 11/03/16 10:30 12/03/16 10:29 11/05/16 08:31 Promethazine HCl/ Codeine (Phenergan with Codeine) 5 ml Q4H PRN ORAL For Cough 11/03/16 20:00 12/03/16 19:59 11/05/16 20:22 Zolpidem Tartrate (Ambien) 5 mg HSPRN PRN ORAL Insomnia 11/03/16 10:30 12/03/16 10:29 11/05/16 20:22 ALFREDA ETIENNE Nov 06, 2016 18:15
[2016-11-06 20:00] VITALS: BP 131/57
[2016-11-06] MEDS: Promethazine/Codeine 5ml UD ORAL PRN (20:46)
[2016-11-06] MEDS: Zolpidem 5mg tab ORAL PRN (20:46)
[2016-11-07] VITALS: BP 132/62
[2016-11-07 04:00] VITALS: BP 134/65
[2016-11-07] MEDS: THYROID ORAL SCH (06:29)
[2016-11-07 08:00] VITALS: BP_SYST 128; BP_SYST 135; BP_DIAS 65
[2016-11-07 08:28] LABS: BASOPHILS % (AUTO) 0.6 % (0.0-2.0); LYMPHOCYTES % (AUTO) 16.5 % (20.0-45.0); MEAN CORPUSCULAR HEMOGLOBIN 31.9 PG (27.0-31.0); MEAN CORPUSCULAR HGB CONC 32.8 G/DL (32.0-36.0); MEAN CORPUSCULAR VOLUME 97 FL (80-99); MONOCYTES % (AUTO) 7.7 % (1.0-10.0); NEUTROPHILS % (AUTO) 73.2 % (45.0-75.0); PLATELET COUNT 185 K/UL (150-450); RED CELL DISTRIBUTION WIDTH 11.1 % (11.6-14.8); WHITE BLOOD COUNT 7.9 K/UL (4.8-10.8)
[2016-11-07 08:52] LABS: ANION GAP 11 (5-15); CALCIUM 9.2 mg/dL (8.6-10.2); CARBON DIOXIDE 29 mEQ/L (20-30); CHLORIDE 94 mEQ/L (98-107); CREATININE 0.6 mg/dL (0.5-0.9); HEMOLYSIS 2; POTASSIUM 4.1 mEQ/L (3.4-4.9); SODIUM 134 mEQ/L (135-145)
[2016-11-07] MEDS: Heparin 5000 units/ml inj SUBQ SCH (09:31)
[2016-11-07 12:00] VITALS: BP_SYST 123; BP_SYST 145; BP_DIAS 66; BP_DIAS 83
[2016-11-07 16:00] VITALS: BP 146/82
[2016-11-07] MEDS ORDERED: LEVAQUIN500 MG ORAL (16:24)
[2016-11-07] MEDS ORDERED: ACETAMINOPHEN325 M1 ORAL (16:24)
[2016-11-07] MEDS ORDERED: ALBUTEROL SULF8.5 GM INH (16:24)
[2016-11-07] MEDS ORDERED: AMBIEN5 MG ORAL (16:24)
[2016-11-07] MEDS ORDERED: NORCO 5-325 TA1 EACH ORAL (16:24)
--- NOTE | 2016-11-07 16:29 | Discharge Summary ---
Discharge Summary Hospital Course Date of Admission Nov 02, 2016 at 23:00 Date of Discharge Admitting Diagnosis R pelvis fx HPI Thi Jenkins is a 86 year old female who was admitted on Nov 02, 2016 at 23:00 for Right Pelvis Fracture Hospital Course Dictated for Int Med-Dr Márquez no. [id number]. Discharge Discharge Disposition Patient was discharged to SNF/Subacute Facility(03) Discharge Diagnoses: DENISSE HANNA Nov 07, 2016 16:29
[2016-11-07 17:46] LABS: APPEARANCE,URINE CLEAR; KETONES,URINE NEGATIVE (NEGATIVE); LEUKOCYTE ESTERASE ,URINE 2+ (NEGATIVE); NITRITE,URINE NEGATIVE (NEGATIVE); PH,URINE 6 (4.5-8.0); PROTEIN,URINE NEGATIVE (NEGATIVE); UROBILINOGEN,URINE NORMAL MG/DL (0.0-1.0)
[2016-11-07 17:54] LABS: BACTERIA,URINE FEW /HPF; RBC,URINE 0-2 /HPF (0 - 2); SQUAMOUS EPITHELIAL CELL,UR FEW /LPF (NONE/OCC)
[2016-11-07] MEDS ORDERED: Levofloxacin 500mg tab ORAL ONE (18:00)
--- NOTE | 2016-11-07 23:15 | Pulmonology Progress Note ---
Assessment/Plan Problems: (1) Closed fracture of iliac wing of pelvis (2) Hypothyroidism (3) HTN (hypertension) (4) Fall from slipping on slippery surface Assessment/Plan pain control pt/ot dvt prophlaxis dc planning all meds reviewed Subjective ROS Limited/Unobtainable: No Interval Events: comfortable Allergies: Coded Allergies: CELECOXIB (Verified Adverse Reaction, Intermediate, 11/02/16) PENICILLINS (Verified Adverse Reaction, Intermediate, 11/02/16) SULFA (SULFONAMIDE ANTIBIOTICS) (Verified Adverse Reaction, Intermediate, 11/02/16) AMOXICILLIN (Verified Adverse Reaction, Unknown, 11/02/16) PROPOXYPHENE (Verified Adverse Reaction, Unknown, 11/02/16) Uncoded Allergies: BIOXIN (Adverse Reaction, Mild, 11/02/16) Objective Last 24 Hour Vital Signs Date Time Temp Pulse Resp B/P Pulse Ox O2 Delivery O2 Flow Rate FiO2 11/07/16 16:00 99.5 103 18 146/82 94 11/07/16 12:00 97.5 90 18 123/66 95 Room Air 11/07/16 09:31 84 135/65 11/07/16 08:00 98.1 84 18 135/65 97 Room Air 11/07/16 04:00 97.6 90 20 134/65 95 Nasal Cannula 2.0 11/07/16 00:00 98.4 90 20 132/62 94 Room Air 2.0 Intake and Output 11/06/16 11/07/16 19:00 07:00 Intake Total 840 ml Output Total 1 ml Balance 839 ml Intake Oral 840 ml Stool Total 1 ml # Voids 4 General Appearance: WD/WN HEENT: normocephalic, atraumatic Respiratory/Chest: chest wall non-tender, lungs clear Cardiovascular: normal peripheral pulses, normal rate Abdomen: normal bowel sounds, soft, non tender Extremities: no cyanosis 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, abnormal gait, normal mood/ affect Laboratory Tests 11/07/16 07:55: White Blood Count 7.9, Red Blood Count 3.60L, Hemoglobin 11.5L, Hematocrit 34.9L , Mean Corpuscular Volume 97, Mean Corpuscular Hemoglobin 31.9H, Mean Corpuscular Hemoglobin Concent 32.8, Red Cell Distribution Width 11.1L, Platelet Count 185, Mean Platelet Volume 8.0, Neutrophils (%) (Auto) 73.2, Lymphocytes (%) (Auto) 16.5L, Monocytes (%) (Auto) 7.7, Eosinophils (%) (Auto) 2.0, Basophils (%) (Auto) 0.6, Sodium Level 134L, Potassium Level 4.1, Chloride Level 94L, Carbon Dioxide Level 29, Anion Gap 11, Blood Urea Nitrogen 18, Creatinine 0.6, Estimat Glomerular Filtration Rate , Glucose Level 165H, Calcium Level 9.2 11/07/16 17:00: Urine Color Pale yellow, Urine Appearance Clear, Urine pH 6, Urine Specific [place] 1.010, Urine Protein Negative, Urine Glucose (UA) Negative, Urine Ketones Negative, Urine Occult Blood Negative, Urine Nitrite Negative, Urine Bilirubin Negative, Urine Urobilinogen Normal, Urine Leukocyte Esterase 2+H, Urine RBC 0-2, Urine WBC 2-4, Urine Squamous Epithelial Cells Few, Urine Bacteria Few ALFREDA ETIENNE Nov 07, 2016 23:15
--- NOTE | 2016-11-08 08:58 | Discharge Summary ---
DATE OF ADMISSION: 11/02/2016 DATE OF DISCHARGE: 11/07/2016 ADMITTING DIAGNOSES: 1. Right hip pain. 2. Hypertension. 3. Hypothyroidism. DISCHARGE DIAGNOSES: 1. Fracture of the right iliac wing. 2. Hypertension. 3. Hypothyroidism. 4. Urinary tract infection. HOSPITAL COURSE BY PROBLEM LIST: 1. Fracture of the right iliac wing. An initial pelvic x-ray series reveals fracture of the right iliac wing. An orthopedic consultation was obtained with Dr. Blil Hook. Fracture was nonsurgical. The patient has been receiving physical therapy during the hospitalization. The patient is discharged today, 11/07/2016 to [facility] for acute rehabilitation. The patient will be followed by her primary care physician, Dr. Aisha whyte. 2. Hypertension. The patient remained on Norvasc 2.5 mg one tablet p.o. daily. The patient is to follow up with her primary care physician in one week. 3. Hypothyroidism. The patient remained on her own thyroid medication during hospitalization. The patient is currently on thyroid 16.25 mg daily. The patient is to continue this upon transfer. 4. Urinary tract infection. An urine culture is pending. The patient has been placed empirically on Levaquin. The patient is discharged today to [facility] for continued monitoring of urinary tract infection. DISCHARGE MEDICATIONS: Please refer discharge medication list. DISCHARGE INSTRUCTIONS: 1. The patient is discharged today, 11/07/2016 to [facility]. 2. Follow up with her primary care physician, . Meir Rodriguez M.D. DR: Cara JOB#: [id number] CC:
== END 2016-11-07 20:11 | DRG 536 ==
LOC: EDBD 20:06 → EMR 20:22 → EDBEDREQ 22:51 → 4E 23:00 → EDBEDREQ 11-03 10:26 → 4E 11-04 14:10
DX: S32.391A Other fracture of right ilium, initial encounter for closed fracture (principal); I10 Essential (primary) hypertension; W18.2XXA Fall in (into) shower or empty bathtub, initial encounter; Y92.002 Bathroom of unspecified non-institutional (private) residence as the place of occurrence of the external cause; Z85.89 Personal history of malignant neoplasm of other organs and systems; E03.9 Hypothyroidism, unspecified; Z96.653 Presence of artificial knee joint, bilateral; Z88.6 Allergy status to analgesic agent; Z88.0 Allergy status to penicillin; Z88.8 Allergy status to other drugs, medicaments and biological substances
CPT/HCPCS: 36415; 71010; 72131; 72192; 80048; 80053; 81001; 81003; 82550; 82553; 83605; 84484; 85025; 87040; 87086; 87181; 94640; 94664; 96361; 96374; 96375